=== PATIENT | female | born 1960 | race Caucasian/White ===

== ENCOUNTER 2017-04-07 01:33 | Emergency (ER) | payer BC ==
[2017-04-07] MEDS ORDERED: Tetan/Diph/Pertus SYR(Tdap)* 0.5 ML SYR(BOOSTRIX) use SYR IM ONE (01:54)
[2017-04-07] MEDS ORDERED: Ketorolac INJ* 60 MG/2 ML VIAL IM ONE (01:54)
[2017-04-07 02:08] VITALS: BP 117/81
[2017-04-07] MEDS ORDERED: traMADol TAB* 50 MG PO ONE (02:09)
--- NOTE | 2017-04-07 02:39 | ED ---
Sage Mccabe Salem, scribed for Maury Suh MD on 04/07/17 at 0204 . Adult Trauma - HPI Summary HPI Summary: Patient is a 56 y/o female who presents to the ED s/p a fall late last night. She states she was walking up carpeted stairs in the dark when she slipped and fell down approximately 8-9 steps. She reports pain in her right 5th finger and in her right lower back. She denies LOC, taking blood thinners, or any known drug allergies. She also denies taking any OTC medication for pain after fall. Pt states her last tetanus shot was a very long time ago. - History of Current Complaint Chief Complaint: EDTraumaMultiple Stated Complaint: FALL/RIGHT HAND AND SIDE PAIN Time Seen by Provider: 04/07/17 01:51 Hx Obtained From: Patient Mechanism of Injury: Fall Loss of Consciousness: no loss of consciousness Force: Low Onset/Duration: Started Hours Ago, Traumatic, Still Present Onset of Pain: Immediate Onset Severity: Moderate Current Severity: Moderate Pain Intensity: 2 Pain Scale Used: 0-10 Numeric Location: Back - Lower right. Aggravating Factor(s): Movement Alleviating Factor(s): Rest Associated Signs & Symptoms: Positive: Other: - Pain in right 5th finger. 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 - Social History Alcohol Use: Weekly Hx Substance Use: No Substance Use Type: Reports: None Review of Systems Negative: Fever Positive: Other - Pain in lower right back and right 5th finger. Neurological: Other - No LOC. All Other Systems Reviewed And Are Negative: Yes Physical Exam Triage Information Reviewed: Yes Vital Signs On Initial Exam: Initial Vitals Temp Pulse Resp BP Pulse Ox 97.5 F 90 18 147/106 95 04/07/17 01:36 04/07/17 01:36 04/07/17 01:36 04/07/17 01:36 04/07/17 01:36 Vital Signs Reviewed: Yes Appearance: Positive: Well-Appearing, Pain Distress - mild discomfort Skin: Positive: Other - abrasions to rt hand Head/Face: Positive: Normal Head/Face Inspection Eyes: Positive: DEEPALI ENT: Positive: Hearing grossly normal Neck: Positive: Supple Respiratory/Lung Sounds: Positive: Breath Sounds Present Cardiovascular: Positive: RRR Abdomen Description: Positive: Nontender, Soft Bowel Sounds: Positive: Present Musculoskeletal: Positive: Other - mild rt hip pain, from, rt hand deformity to distal 5th finger Neurological: Positive: Alert, Oriented to Person Place, Time Psychiatric: Positive: Affect/Mood Appropriate Procedures - Joint Reduction Joint Reduction Site: other Specify Other Joint Reduced: rt 5th finger Conscious Sedation: No Post Joint Reduction Film: joint reduced Diagnostics - Vital Signs Vital Signs Temp Pulse Resp BP Pulse Ox 04/07/17 01:36 97.5 F 90 18 147/106 95 - Laboratory Lab Statement: Any lab studies that have been ordered have been reviewed, and results considered in the medical decision making process. - Radiology Right hand XR Radiology Interpretation Completed By: ED Physician - 5th finger distal phalanx dislocation. Pelvis XR Radiology Interpretation Completed By: ED Physician - Negative. Re-Evaluation - Re-Evaluation First Eval Change: Improved Adult Trauma Course/Dx - Diagnoses Provider Diagnoses: Finger dislocation, Multiple contusions Discharge - Discharge Plan Condition: Improved Disposition: HOME Patient Education Materials: Finger Dislocation (ED), Contusion in Adults (ED) Referrals: Jacqueline Hunt MD [Primary Care Provider] - Additional Instructions: Follow up with PCP. The documentation as recorded by the Sage bailon Salem accurately reflects the service I personally performed and the decisions made by , Maury Suh MD.
--- NOTE | 2017-04-07 07:57 | RAD ---
INDICATION: Dorsal right hand pain after a fall COMPARISON: None. TECHNIQUE: 4 views of the right hand were obtained. FINDINGS: The distal phalanx of the right small finger is displaced dorsally approximately one bone width interval last or extent displaced in the ulnar direction. The remaining visualized bones are intact and appropriately aligned. IMPRESSION: Displacement at the right small finger distal interphalangeal joint as described above.
--- NOTE | 2017-04-07 07:57 | RAD ---
INDICATION: Trauma, pain. TECHNIQUE: An AP view of the pelvis was obtained. FINDINGS: The bones are in normal alignment. No fracture is seen. 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 IMPRESSION: NO EVIDENCE FOR FRACTURE, IF THE PATIENT'S SYMPTOMS PERSIST RECOMMEND FOLLOW-UP IMAGING.
== END 2017-04-07 03:10 | disposition home or self-care (01) ==
LOC: ED 01:33
DX: S63.256A Unspecified dislocation of right little finger, initial encounter (principal); T14.8 Other injury of unspecified body region; M54.5 Low back pain; W10.9XXA Fall (on) (from) unspecified stairs and steps, initial encounter; Y93.9 Activity, unspecified; Y92.9 Unspecified place or not applicable; Y99.9 Unspecified external cause status; X58.XXXA Exposure to other specified factors, initial encounter
CPT/HCPCS: 72170; 90471; 90715; 96372; 99282; A9270-GY

== ENCOUNTER 2017-08-02 17:19 | Emergency (ER) | payer BC ==
[2017-08-02 17:25] VITALS: BP 139/96
--- NOTE | 2017-08-02 18:28 | ED ---
Skin Complaint - HPI Summary HPI Summary: Pt here w/ Left index finger laceration 2 hours ago. Was using new cutlery and accidentally caught the pad aspect of her tip - has applied pressure and still bleeding. Cleaned area prior to arrival. Denies numbness, tingling, weakness. Imms are UTD. 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 - Social History Occupation: Employed Full-time - event marketing manager - types Lives: With Family Alcohol Use: Weekly Hx Substance Use: No Substance Use Type: Reports: None Substance Use Comment - Amount & Last Used: occassionally Hx Tobacco Use: No Smoking Status (MU): Never Smoked Tobacco Review of Systems Constitutional: Negative Positive: no symptoms reported Musculoskeletal: Negative Skin: Other - see HPI Neurological: Negative Positive: Anxious - concerned about needing sutures All Other Systems Reviewed And Are Negative: Yes Physical Exam Triage Information Reviewed: Yes Vital Signs On Initial Exam: Initial Vitals Temp Pulse Resp BP Pulse Ox 97.5 F 84 16 139/96 94 08/02/17 17:22 08/02/17 17:22 08/02/17 17:22 08/02/17 17:22 08/02/17 17:22 Vital Signs Reviewed: Yes Appearance: Positive: Well-Appearing, No Pain Distress, Well-Nourished Skin: Positive: Warm - linear laceration over Lt distal palmar aspect of index finger - continuous bleeding but not pulsatile ejection of blood Head/Face: Positive: Normal Head/Face Inspection Eyes: Positive: EOMI ENT: Positive: Hearing grossly normal Respiratory/Lung Sounds: Positive: Breath Sounds Present Cardiovascular: Positive: Pulses are Symmetrical in both Upper and Lower Extremities Musculoskeletal: Positive: Normal, Strength/ROM Intact Neurological: Positive: Normal, Sensory/Motor Intact, Alert, Oriented to Person Place, Time, CN Intact II-III Psychiatric: Positive: Anxious - concerned but cooperative and consolable Procedures - Laceration/Wound Repair 1 Location: upper extremity - Lt index finger - distal tip Description: Linear Length, Depth and Shape: 1cm x 2mm Betadine Prep?: No Irrigated w/ Saline (ccs): 500 - soaked in hibaclens + water solution Laceration/Wound Explored: clean - bleeding ceased after soak and no return of bleeding - wound clean Closure: Skin Adhesive, SteriStrips Layer Closure?: No Sterile Dressing Applied?: Yes - dermabond + steristrips + sterile gauze + coban Diagnostics - Vital Signs Vital Signs Temp Pulse Resp BP Pulse Ox 08/02/17 17:22 97.5 F 84 16 139/96 94 - Laboratory Lab Statement: Any lab studies that have been ordered have been reviewed, and results considered in the medical decision making process. Course/Dx - Diagnoses Provider Diagnoses: Laceration of left index finger Discharge - Discharge Plan Condition: Stable Disposition: HOME Patient Education Materials: Finger Laceration (ED), Skin Adhesive Care (ED), Steristrips (ED) Referrals: Jacqueline Hunt MD [Primary Care Provider] - Additional Instructions: Keep wound clean and dry until steristrips fall off on their own in about 5 days. If they fall off sooner, clean wound and reapply steristrips Rest, ice, elevate and take ibuprofen with food for pain If wound is no longer bleeding, you may use triple antibiotic ointment + bandaid until healed Follow-up with PCP if wound persists *If you develop redness, swelling, streaking, purulent drainage, fever, chills, seek medical attention
== END 2017-08-02 19:21 | disposition home or self-care (01) ==
LOC: ED 17:19
DX: S61.211A Laceration without foreign body of left index finger without damage to nail, initial encounter (principal); W45.8XXA Other foreign body or object entering through skin, initial encounter; Y92.9 Unspecified place or not applicable
CPT/HCPCS: 12001; 99282

== ENCOUNTER 2017-10-24 23:02 | Emergency (ER) | payer BC ==
[2017-10-24] MEDS ORDERED: diPHENhydraMINE IV* 50 MG/ML 1 ml VIAL (BENADRYL) IM ONE (23:17)
[2017-10-24] MEDS ORDERED: LORazepam INJ* 2 MG/ML 1 ML VIAL IM ONE (23:17)
[2017-10-24] MEDS ORDERED: Haloperidol INJ IV/IM* 5 MG/ML AMP IM ONE (23:17)
[2017-10-24] MEDS ORDERED: diPHENhydraMINE PO* 50 MG ONE (23:20)
[2017-10-25 02:11] LABS: Hematocrit 41 % (35-47); Hemoglobin 14.2 g/dl (12.0-16.0); Mean Corpuscular HGB Conc 35 g/dl (31-36); Mean Corpuscular Hemoglobin 34 pg (27-31); Mean Corpuscular Volume 97 fL (80-97); Mean Platelet Volume 8 um3 (7.4-10.4); Red Blood Count 4.24 10^6/ul (4.0-5.4); Red Cell Distribution Width 13 % (10.5-15); White Blood Count 7.2 10^3/ul (3.5-10.8)
[2017-10-25 02:23] LABS: ALT 62 U/L (7-52); AST 47 U/L (13-39); Acetaminophen < 15 mcg/mL; Alcohol 250 mg/dL (<10); Alkaline Phosphatase 80 U/L (34-104); Anion Gap 10 mmol/L (2-11); BUN/Creatinine Ratio 10.6 (8-20); Blood Urea Nitrogen 7 mg/dL (6-24); CO2 Carbon Dioxide 24 mmol/L (22-32); Calcium 8.9 mg/dL (8.6-10.3); Chloride 100 mmol/L (101-111); EGFR African American 118.7 (>60); EGFR Non-African American 92.3 (>60); Globulin 2.8 g/dL (2-4); Glucose 115 mg/dL (70-100); Potassium 3.6 mmol/L (3.5-5.0); Salicylate < 2.50 mg/dL (<30); Sodium 134 mmol/L (133-145); Total Protein 6.8 g/dL (6.4-8.9)
[2017-10-25 02:38] LABS: TSH (Thyroid Stimulating Horm) 7.79 mcIU/mL (0.34-5.60)
[2017-10-25 03:49] LABS: Urine Bilirubin Negative (Negative); Urine Glucose Negative (Negative); Urine Nitrite Negative (Negative)
[2017-10-25 04:06] LABS: Benzodiazepine Urine Screen None Detected (None Detect)
[2017-10-25 07:01] VITALS: BP 114/67
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
== END 2017-10-25 09:50 | disposition home or self-care (01) ==
LOC: ED 23:02
DX: F32.9 Major depressive disorder, single episode, unspecified (principal); F10.10 Alcohol abuse, uncomplicated
CPT/HCPCS: 36415; 80053; 80307; 80320; 80329; 81003; 84443; 85025; 96372; 99283; A9270-GY; G0480; J1630; J2060

== ENCOUNTER 2024-08-16 08:00 | Observation (INO) ==
[~2024-08-16 08:00] MED LIST: NS 0.45% 1000 ml BAG 1,000 ML IV SCH; Naloxone 0.4 mg VIAL 0.4 mg/ml 1 ml VIAL IV PRN; Ondansetron 4 mg VIAL 2 MG/ML 2 ml VIAL IV PRN; Propofol 10 mg/ml 100 ML BTL 1,000 MG/100 ML BTL ONE; ROPIVACAINE 5 MG/ML 30 ML BTL (0.5%) ONE; fentaNYL 100 mcg/2 ml 50 MCG/ML VIAL IV PRN
[2024-08-16] MEDS ORDERED: ceFAZolin 2 GM PREMIX 2 GM/50 ML BAG ONE (08:12)
[2024-08-16] MEDS ORDERED: Tranexamic Acid 1 GM/100ML BAG 2,000 MG/200 ML BAG IV ONE (08:18)
[2024-08-16 08:42] LABS: Rapid COVID-19 Molecular Undetected (Undetected)
[2024-08-16] MEDS ORDERED: Ondansetron 4 mg VIAL 2 MG/ML 2 ml VIAL ONE (09:13)
[2024-08-16] MEDS ORDERED: Lidocaine 2% PF 5 ML VIAL ONE (09:13)
[2024-08-16] MEDS ORDERED: fentaNYL 100 mcg/2 ml 50 MCG/ML VIAL ONE ×3 (09:13→12:11)
[2024-08-16] MEDS ORDERED: Phenylephrine IV 10 MG/ML 1 ml VIAL ONE (09:13)
[2024-08-16] MEDS ORDERED: Dexamethasone IV 4 MG/ML VIAL 1 ml VIAL ONE (09:13)
[2024-08-16] MEDS ORDERED: Midazolam 2 mg/2 ml VIAL 1 mg/ml 2 ml VIAL (2 mg) ONE (09:13)
[2024-08-16] MEDS ORDERED: Midazolam 5 mg/5 ml VIAL 1 mg/ml 5 ml VIAL (5 mg) ONE (09:34)
[2024-08-16] MEDS ORDERED: ROPIVACAINE 5 MG/ML 30 ML BTL (0.5%) ONE (09:35)
[2024-08-16] MEDS ORDERED: Rocuronium 50 mg VIAL 10 mg/ml 5 ml VIAL (50 mg) ONE (10:20)
[2024-08-16] MEDS ORDERED: HYDROmorphone 0.5 MG/0.5 ML SYRINGE ONE (12:01)
[2024-08-16] MEDS ORDERED: Ondansetron 4 mg VIAL 2 MG/ML 2 ml VIAL IV PRN (13:50)
[2024-08-16] MEDS ORDERED: Ondansetron ODT 4 mg TAB 4 MG TAB PO PRN (13:50)
[2024-08-16] MEDS ORDERED: Lactulose 30 ml UDC PO PRN (13:50)
[2024-08-16] MEDS ORDERED: Calcium Carb (TUMS) 500 mg CHEW TAB PO PRN (13:50)
[2024-08-16] MEDS ORDERED: Morphine 2 MG/ML SYRINGE IV PRN (13:50)
[2024-08-16] MEDS ORDERED: Magnesium Hydroxide LIQ 30 ML UDC PO PRN (13:50)
[2024-08-16] MEDS ORDERED: Acetaminophen IV 1 GM/100ML 1,000 MG/100 ML BAG IV ONE (14:16)
[2024-08-16] MEDS: Acetaminophen IV 1 GM/100ML 1,000 MG/100 ML BAG IV ONE (14:20)
[2024-08-16] MEDS: Buffered Lidocaine 1% SYRIN 1 ml INTRADERM ONE (15:27)
[2024-08-16] MEDS: Lactated Ringers 1000 ml BAG 1,000 ML IV SCH ×2 (15:27→15:50)
[2024-08-16] MEDS: ceFAZolin 2 GM PREMIX 2 GM/50 ML BAG IV SCH (19:25)
[2024-08-16] MEDS: NICOTINE GUM 4 MG PO PRN (19:25)
[2024-08-16] MEDS: [UNRECOGNIZED DRUG - OTHER] PO PRN (19:25)
[2024-08-16] MEDS: Magnesium Hydroxide LIQ 30 ML UDC PO SCH (20:22)
[2024-08-17 05:32] LABS: Hematocrit 31.6 % (35-45); Hemoglobin 10.6 g/dL (11.5-14.3); Mean Platelet Volume 9.1 fL (7.5-11.2); Platelet Count 195 10^3/uL (150-450)
[2024-08-17 05:50] LABS: Calcium 8.2 mg/dL (8.6-10.3); Creatinine, Serum 0.87 mg/dL (0.51-0.95); Potassium 4.5 mmol/L (3.5-5.0); eGFR CKD-EPI 74.8 (>60)
[2024-08-17] MEDS: Venlafaxine XR 75 mg PO SCH (09:09)
[2024-08-17] MEDS: Vitamin THERAPEUTIC TAB PO SCH (09:10)
[2024-08-17 10:14] VITALS: BP 101/67
== END 2024-08-17 13:04 | disposition home or self-care (01) ==
LOC: OR 08:00 → SSU 08:00
PROVIDERS: ADMIT Orthopaedic Surgery Adult Reconstructive Orthopaedic Surgery; ATTEND Orthopaedic Surgery Adult Reconstructive Orthopaedic Surgery